=== PATIENT | female | born 2005 | race Two or more races ===

== ENCOUNTER 2024-05-18 23:32 | Emergency (ER) | payer BC | END 2024-05-19 00:44 | disposition home or self-care (01) | LOC: NAV ERS 23:32 | DX: S06.0X1A Concussion with loss of consciousness of 30 minutes or less, initial encounter (principal); S00.93XA Contusion of unspecified part of head, initial encounter; W22.8XXA Striking against or struck by other objects, initial encounter | CPT/HCPCS: 70450 ==